=== PATIENT | female | born 1960 | race Caucasian/White ===

== ENCOUNTER 2019-01-22 16:39 | Emergency (ER) | payer MEDICARE ==
--- NOTE | 2019-01-22 18:22 | EDM.PDOC ---
ED HPI GENERAL MEDICAL PROBLEM - General Chief Complaint: Chest Pain Stated Complaint: CHEST HURTS WITH DEEP BREATH Time Seen by Provider: 01/22/19 18:22 Source of Information: Reports: Patient History Limitations: Reports: No Limitations - History of Present Illness INITIAL COMMENTS - FREE TEXT/NARRATIVE: pt arrived with rt sided pleuritic chest pain . This started yesterday. She has not had a fever. Onset: Other ( started yesterday) Duration: Hour(s): Location: Reports: Chest Associated Symptoms: Reports: Other (severe pain with dep breathing. ) Anterior Chest Pain Score (Numeric/FACES): 6 - Related Data Allergies Allergy/AdvReac Type Severity Reaction Status Date / Time adhesive Allergy Rash Verified 01/22/19 17:21 guaifenesin [From Robitussin] Allergy Abdominal Verified 01/22/19 17:21 Pain hydromorphone HCl Allergy Rash Verified 01/22/19 17:21 [From Dilaudid] phenobarbital Allergy Cannot Verified 01/22/19 17:21 Remember prochlorperazine edisylate Allergy Rash Verified 01/22/19 17:21 [From Compazine] prochlorperazine maleate Allergy Rash Verified 01/22/19 17:21 [From Compazine] acetaminophen [From Tylox] AdvReac Confusion Verified 01/22/19 17:21 oxycodone HCl [From Tylox] AdvReac Confusion Verified 01/22/19 17:21 Home Meds: Home Meds Pantoprazole [ProTONIX] 40 mg PO DAILY #30 05/31/14 [Rx] Cyclobenzaprine [Flexeril] 10 mg PO BID 02/15/15 [History] Folic Acid 1 mg PO DAILY 02/27/17 [History] Lacosamide [Vimpat] 100 mg PO BID 02/27/17 [History] Multivit-Min/FA/Lycopene/Lut [Centrum Silver Tablet] 1 each PO DAILY 02/27/17 [ History] Topiramate [Topamax] 75 mg PO DAILY 02/27/17 [History] hydrOXYzine HCl [hydrOXYzine] 25 mg PO QID PRN 02/27/17 [History] traZODone 150 mg PO BEDTIME 02/27/17 [History] levETIRAcetam [Keppra] 15 ml PO BID #900 ml 03/10/18 [Rx] Topiramate [Topamax] 125 mg PO BEDTIME 01/22/19 [History] Past Medical History Cardiovascular History: Reports: Angina, Blood Clots/VTE/DVT, CAD, High Cholesterol, Hypertension, [place] Respiratory History: Reports: COPD, Intubation, Previous, Other (See Below) Other Respiratory History: chronic atelectasis, ARDS Gastrointestinal History: Reports: Cholelithiasis, Chronic Constipation, Diverticulosis, GERD, Pancreatitis Genitourinary History: Reports: Other (See Below) Other Genitourinary History: NILES w/ bilateral salpingo- oophorectomy 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: Endometriosis Musculoskeletal History: Reports: Back Pain, Chronic, Fracture, Osteoporosis Other Musculoskeletal History: compression fracture Neurological History: Reports: Seizure Psychiatric History: Reports: Anxiety, Depression Endocrine/Metabolic History: Reports: Diabetes, Type II, Obesity/BMI 30+ Hematologic History: Reports: Anemia, Blood Transfusion(s) Dermatologic History: Reports: Other (See Below) Other Dermatologic History: granulomannulare - Infectious Disease History Infectious Disease History: Reports: Chicken Pox, Mumps - Past Surgical History HEENT Surgical History: Reports: Tonsillectomy GI Surgical History: Reports: Appendectomy, Bariatric Procedure, Cholecystectomy , Colonoscopy, EGD, Hernia Repair/Other, Other (See Below) Musculoskeletal Surgical History: Reports: Shoulder Surgery Social & Family History - Caffeine Use Caffeine Use: Reports: None - Living Situation & Occupation Living situation: Reports: Occupation: Disabled (Lives with Cameron, [facility] by [facility], had 3 children (1 ) and 4 step-children.) ED ROS GENERAL - Review of Systems Review Of Systems: See Below Constitutional: Reports: Weakness, Other (pain with deep breathing on the rt. ) HEENT: Reports: No Symptoms Respiratory: Reports: Pleuritic Chest Pain Cardiovascular: Reports: No Symptoms Endocrine: Reports: No Symptoms GI/Abdominal: Reports: No Symptoms : Reports: No Symptoms Musculoskeletal: Reports: No Symptoms ED EXAM, GENERAL - Physical Exam Exam: See Below Free Text/Narrative:: pt arrived with pleuritic pain in the rt chest. she does have some discomfort all of the time but it is very sharp when she coughes or takes a deep breath. Exam Limited By: No Limitations General Appearance: Alert, Anxious Ears: Normal TMs Nose: Normal Inspection Throat/Mouth: Normal Inspection Head: Atraumatic Neck: Normal Inspection Cardiovascular: Regular Rate, Rhythm, Other (pt does have a occasional ectopic. ) GI/Abdominal: Soft, Non-Tender (Female) Exam: Deferred Rectal (Female) Exam: Deferred Back Exam: Normal Inspection Extremities: Normal Inspection Neurological: Alert, Oriented, Normal Cognition Psychiatric: Normal Affect Course - Vital Signs Last Recorded V/S: Last Vital Signs Temp 37.0 C 01/22/19 18:54 Pulse 76 01/22/19 20:49 Resp 14 01/22/19 20:49 BP 125/65 01/22/19 20:49 Pulse Ox 97 01/22/19 20:49 - Orders/Labs/Meds Orders: Active Orders 24 hr Category Date Time Status EKG Documentation Completion [RC] ASDIRECTED Care 01/22/19 18:21 Active EKG 12 Lead [EK] Routine Ther 01/22/19 18:21 Ordered Labs: Laboratory Tests 01/22/19 01/22/19 01/22/19 Range/Units 18:30 18:35 18:35 WBC 5.9 (4.5-11.0) K/uL RBC 4.06 (3.30-5.50) M/uL Hgb 13.3 (12.0-15.0) g/dL Hct 40.0 (36.0-48.0) % MCV 99 H (80-98) fL MCH 33 H (27-31) pg MCHC 33 (32-36) % Plt Count 259 (150-400) K/uL Neut % (Auto) 50 (36-66) % Lymph % (Auto) 39 (24-44) % [place] % (Auto) 10 H (2-6) % Eos % (Auto) 2 (2-4) % Baso % (Auto) 0 (0-1) % D-Dimer, Quantitative < 100 (0.0-400.0) ng/mL Sodium (140-148) mmol/L Potassium (3.6-5.2) mmol/L Chloride (100-108) mmol/L Carbon Dioxide (21-32) mmol/L Anion Gap (5.0-14.0) mmol/L BUN (7-18) mg/dL Creatinine (0.6-1.0) mg/dL Est Cr Clr Drug Dosing mL/min Estimated GFR (MDRD) (>60) Glucose (74-106) mg/dL Calcium (8.5-10.1) mg/dL Total Bilirubin (0.2-1.0) mg/dL AST (15-37) U/L ALT (12-78) U/L Alkaline Phosphatase (46-116) U/L Troponin I < 0.017 (0.000-0.056) ng/mL C-Reactive Protein (0.0-0.3) mg/dL Total Protein (6.4-8.2) g/dL Albumin (3.4-5.0) g/dL Globulin (2.3-3.5) g/dL Albumin/Globulin Ratio (1.2-2.2) Urine Color (YELLOW) Urine Appearance (CLEAR) Urine pH (5.0-8.0) Ur Specific [place] (1.008-1.030) Urine Protein (NEGATIVE) mg/dL Urine Glucose (UA) (NEGATIVE) mg/dL Urine Ketones (NEGATIVE) mg/dL Urine Occult Blood (NEGATIVE) Urine Nitrite (NEGATIVE) Urine Bilirubin (NEGATIVE) Urine Urobilinogen (0.2-1.0) EU/dL Ur Leukocyte Esterase (NEGATIVE) Urine RBC (0-5) Urine WBC (0-5) Ur Epithelial Cells Amorphous Sediment Urine Bacteria Urine Mucus 01/22/19 01/22/19 01/22/19 Range/Units 18:35 18:35 19:42 WBC (4.5-11.0) K/uL RBC (3.30-5.50) M/uL Hgb (12.0-15.0) g/dL Hct (36.0-48.0) % MCV (80-98) fL MCH (27-31) pg MCHC (32-36) % Plt Count (150-400) K/uL Neut % (Auto) (36-66) % Lymph % (Auto) (24-44) % [place] % (Auto) (2-6) % Eos % (Auto) (2-4) % Baso % (Auto) (0-1) % D-Dimer, Quantitative (0.0-400.0) ng/mL Sodium 142 (140-148) mmol/L Potassium 4.1 (3.6-5.2) mmol/L Chloride 108 (100-108) mmol/L Carbon Dioxide 25 (21-32) mmol/L Anion Gap 9.2 (5.0-14.0) mmol/L BUN 9 (7-18) mg/dL Creatinine 0.7 (0.6-1.0) mg/dL Est Cr Clr Drug Dosing 71.58 mL/min Estimated GFR (MDRD) > 60 (>60) Glucose 90 (74-106) mg/dL Calcium 8.8 (8.5-10.1) mg/dL Total Bilirubin 0.2 (0.2-1.0) mg/dL AST 16 (15-37) U/L ALT 14 D (12-78) U/L Alkaline Phosphatase 94 (46-116) U/L Troponin I (0.000-0.056) ng/mL C-Reactive Protein 1.13 H (0.0-0.3) mg/dL Total Protein 7.1 (6.4-8.2) g/dL Albumin 3.3 L (3.4-5.0) g/dL Globulin 3.8 H (2.3-3.5) g/dL Albumin/Globulin Ratio 0.9 L (1.2-2.2) Urine Color Yellow (YELLOW) Urine Appearance Clear (CLEAR) Urine pH 6.5 (5.0-8.0) Ur Specific [place] 1.025 (1.008-1.030) Urine Protein Negative (NEGATIVE) mg/dL Urine Glucose (UA) Negative (NEGATIVE) mg/dL Urine Ketones Negative (NEGATIVE) mg/dL Urine Occult Blood Negative (NEGATIVE) Urine Nitrite Negative (NEGATIVE) Urine Bilirubin Negative (NEGATIVE) Urine Urobilinogen 0.2 (0.2-1.0) EU/dL Ur Leukocyte Esterase Trace H (NEGATIVE) Urine RBC 0-5 (0-5) Urine WBC 0-5 (0-5) Ur Epithelial Cells Few Amorphous Sediment Not seen Urine Bacteria Few Urine Mucus Moderate Meds: Medications Discontinued Medications Generic Name Dose Route Start Last Admin Trade Name Freq PRN Reason Stop Dose Admin Hydrocodone Bitart/Acetaminophen 1 tab 01/22/19 20:14 01/22/19 20:48 [place] 325-5 Mg PO 01/22/19 20:15 1 tab ONETIME ONE Administration Ketorolac Tromethamine 60 mg 01/22/19 18:58 01/22/19 19:05 Toradol IM 01/22/19 18:59 60 mg ONETIME ONE Administration - Re-Assessments/Exams Free Text/Narrative Re-Assessment/Exam: 01/22/19 20:19 pt had a normal trop. Her ekg did showed some possible evidence of a old infacrt inferior. Her chest xray was clear. She is still uncomfortable. She was given torodol 60 mg im. She had clear urine. Her wbc was normal. 01/22/19 20:56 pthad a normal ddimer. She wasgiven some norco. Departure - Departure Time of Disposition: 20:57 Disposition: Home, Self-Care 01 Condition: Fair Clinical Impression: Pleurisy, Seizure disorder Referrals: Darleen Moody ENVIRONMENTAL HEALTH SPECIALIST [Primary Care Provider] - Forms: ED Department Discharge Care Plan Goals: encourage deep breathing, naprosyn 500 mg bid for 4 days, norco 5/325 q6h prn for pain, may use tylenol inbetween for pain. - My Orders Last 24 Hours: My Active Orders 01/22/19 18:21 EKG Documentation Completion [RC] ASDIRECTED EKG 12 Lead [EK] Routine - Assessment/Plan Last 24 Hours: My Active Orders 01/22/19 18:21 EKG Documentation Completion [RC] ASDIRECTED EKG 12 Lead [EK] Routine
[2019-01-22] MEDS ORDERED: Ketorolac 60 MG/2 ML SDV IM ONE (18:58)
--- NOTE | 2019-01-22 19:43 | CRLCR ---
INDICATION: Right-sided chest pain TECHNIQUE: Chest 2 views. COMPARISON: 06/26/2015 FINDINGS: Cardiovascular and mediastinum: Heart size and vasculature are normal in caliber and appearance. Mediastinum is within normal limits. Right-sided central line tip in the SVC. Lungs and pleural spaces: Lungs are clear. No sign of infiltrate or mass. No sign of pleural effusion. No pneumothorax. Bones and soft tissues: No significant findings. IMPRESSION: Unremarkable chest. Dictated by Vini Shah MD @ 01/22/2019 7:40:49 PM Dictated by: Vini Shah MD @ 01/22/2019 19:40:53 (Electronically Signed)
[2019-01-22] MEDS ORDERED: Acetaminophen/HYDROcodone 325-5 MG Tab PO ONE (20:14)
[2019-01-22 20:50] VITALS: BP 125/65; PULSE 76
== END 2019-01-22 21:24 | disposition home or self-care (01) ==
LOC: JP.ED 16:39
DX: G40.909 Epilepsy, unspecified, not intractable, without status epilepticus (principal); R09.1 Pleurisy; I10 Essential (primary) hypertension; I25.2 Old myocardial infarction; J44.9 Chronic obstructive pulmonary disease, unspecified; K21.9 Gastro-esophageal reflux disease without esophagitis; F41.9 Anxiety disorder, unspecified; F32.9 Major depressive disorder, single episode, unspecified; E11.9 Type 2 diabetes mellitus without complications; E78.00 Pure hypercholesterolemia, unspecified; Z91.048 Other nonmedicinal substance allergy status; Z88.8 Allergy status to other drugs, medicaments and biological substances; Z88.6 Allergy status to analgesic agent; Z79.899 Other long term (current) drug therapy; Z86.718 Personal history of other venous thrombosis and embolism
CPT/HCPCS: 36415; 71046; 80053; 81001; 84484; 85025; 85379; 86140; 93005; 96372; 99284; A9270; J1885; 93010; 99283

== ENCOUNTER 2019-09-14 11:20 | Emergency (ER) | payer MEDICARE ==
[2019-09-14 11:33] VITALS: BP 147/93; PULSE 102
--- NOTE | 2019-09-14 12:06 | EDM.PDOC ---
ED HPI GENERAL MEDICAL PROBLEM - General Chief Complaint: Back Pain or Injury Stated Complaint: FALL, DISORIENTED Time Seen by Provider: 09/14/19 11:54 Source of Information: Reports: Patient, RN Notes Reviewed History Limitations: Reports: No Limitations - History of Present Illness INITIAL COMMENTS - FREE TEXT/NARRATIVE: 58-year-old female presents emergency department a complaint of neck pain and back pain she fell landed on the ground couple days ago she did hit her head she has had some symptoms with headache a little bit of confusion problems with concentration after her head injury but the main focus is pain at the lower part of her neck as well as low back pain. She does states she has significant history of osteoporosis no loss of bowel or bladder is able to ambulate without difficulty head neck back pelvis Pain Score (Numeric/FACES): 8 - Related Data Allergies Allergy/AdvReac Type Severity Reaction Status Date / Time adhesive Allergy Rash Verified 09/14/19 11:43 guaifenesin [From Robitussin] Allergy Abdominal Verified 09/14/19 11:43 Pain hydromorphone HCl Allergy Rash Verified 09/14/19 11:43 [From Dilaudid] phenobarbital Allergy Cannot Verified 09/14/19 11:43 Remember prochlorperazine edisylate Allergy Rash Verified 09/14/19 11:43 [From Compazine] prochlorperazine maleate Allergy Rash Verified 09/14/19 11:43 [From Compazine] acetaminophen [From Tylox] AdvReac Confusion Verified 09/14/19 11:43 oxycodone HCl [From Tylox] AdvReac Confusion Verified 09/14/19 11:43 Home Meds: Home Meds Pantoprazole [ProTONIX] 40 mg PO DAILY #30 05/31/14 [Rx] Cyclobenzaprine [Flexeril] 10 mg PO BID 02/15/15 [History] Folic Acid 1 mg PO DAILY 02/27/17 [History] Lacosamide [Vimpat] 100 mg PO BID 02/27/17 [History] Multivit-Min/FA/Lycopen/Lutein [Centrum Silver Tablet] 1 each PO DAILY 02/27/17 [History] Topiramate [Topamax] 75 mg PO DAILY 02/27/17 [History] hydrOXYzine HCL [hydrOXYzine] 25 mg PO QID PRN 02/27/17 [History] traZODone 150 mg PO BEDTIME 02/27/17 [History] levETIRAcetam [Keppra] 15 ml PO BID #900 ml 03/10/18 [Rx] Topiramate [Topamax] 125 mg PO BEDTIME 01/22/19 [History] Alendronate Sodium [Fosamax] 70 mg PO ASDIRECTED 09/14/19 [History] FLUoxetine HCl [Fluoxetine HCl] 40 mg PO DAILY 09/14/19 [History] Simvastatin 20 mg PO BEDTIME 09/14/19 [History] Past Medical History Cardiovascular History: Reports: Angina, Blood Clots/VTE/DVT, CAD, High Cholesterol, Hypertension, [place] Respiratory History: Reports: COPD, Intubation, Previous, Other (See Below) Other Respiratory History: chronic atelectasis, ARDS Gastrointestinal History: Reports: Cholelithiasis, Chronic Constipation, Diverticulosis, GERD, Pancreatitis Genitourinary History: Reports: Other (See Below) Other Genitourinary History: NILES w/ bilateral salpingo- oophorectomy 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: Endometriosis Musculoskeletal History: Reports: Back Pain, Chronic, Fracture, Osteoporosis Other Musculoskeletal History: compression fracture Neurological History: Reports: Seizure Psychiatric History: Reports: Anxiety, Depression Endocrine/Metabolic History: Reports: Diabetes, Type II, Obesity/BMI 30+ Hematologic History: Reports: Anemia, Blood Transfusion(s) Dermatologic History: Reports: Other (See Below) Other Dermatologic History: granulomannulare - Infectious Disease History Infectious Disease History: Reports: Chicken Pox, Mumps - Past Surgical History HEENT Surgical History: Reports: Tonsillectomy GI Surgical History: Reports: Appendectomy, Bariatric Procedure, Cholecystectomy , Colonoscopy, EGD, Hernia Repair/Other, Other (See Below) Musculoskeletal Surgical History: Reports: Shoulder Surgery Social & Family History - Tobacco Use Smoking Status *Q: Current Every Day Smoker Years of Tobacco use: 40 Packs/Tins Daily: 0.5 - Caffeine Use Caffeine Use: Reports: None - Recreational Drug Use Recreational Drug Use: No - Living Situation & Occupation Living situation: Reports: Occupation: Disabled (Lives with Cameron, [facility], had 3 children (1 ) and 4 step-children.) ED ROS GENERAL - Review of Systems Review Of Systems: See Below Constitutional: Denies: Fever HEENT: Reports: No Symptoms Respiratory: Reports: No Symptoms Cardiovascular: Reports: No Symptoms GI/Abdominal: Reports: No Symptoms Musculoskeletal: Reports: Neck Pain, Back Pain Neurological: Reports: Confusion ED EXAM,LOWER BACK PAIN/INJURY - Physical Exam Exam: See Below Exam Limited By: No Limitations General Appearance: Alert, WD/WN, No Apparent Distress Neck: Normal Inspection, Tender Lateral, Tender Midline. No: Lymphadenopathy (R ), Lymphadenopathy (L) Respiratory/Chest: No Respiratory Distress Back Exam: Paraspinal Tenderness, Vertebral Tenderness. No: CVA Tenderness (R) , CVA Tenderness (L), Decreased Range of Motion Course - Vital Signs Last Recorded V/S: Last Vital Signs Temp 96.8 F L 09/14/19 11:43 Pulse 102 H 09/14/19 11:43 Resp 16 09/14/19 11:43 BP 147/93 H 09/14/19 11:43 Pulse Ox 95 09/14/19 11:43 - Orders/Labs/Meds Orders: Active Orders 24 hr Category Date Time Status Lumbar Spine 2 or 3V [CR] Stat Exams 09/14/19 12:03 Taken Meds: Medications Discontinued Medications Generic Name Dose Route Start Last Admin Trade Name Freq PRN Reason Stop Dose Admin Ketorolac Tromethamine 60 mg 09/14/19 13:36 09/14/19 13:42 Toradol IM 09/14/19 13:37 60 mg ONETIME ONE Administration Departure - Departure Time of Disposition: 14:12 Disposition: Home, Self-Care 01 Condition: Poor Clinical Impression: Fall Qualifiers: Encounter type: initial encounter Qualified Code(s): W19.XXXA - Unspecified fall, initial encounter Contusion, back Qualifiers: Encounter type: initial encounter Laterality: unspecified laterality Qualified Code(s): S20.229A - Contusion of unspecified back wall of thorax, initial encounter Neck contusion Qualifiers: Encounter type: initial encounter Qualified Code(s): S10.93XA - Contusion of unspecified part of neck, initial encounter - Discharge Information Instructions: Neck Contusion, [id number], Contusion, [id number] Referrals: PCP,None [Primary Care Provider] - Forms: ED Department Discharge Additional Instructions: Use ibuprofen for baseline pain control, use hydrocodone for breakthrough pain please contact your primary care tomorrow for further evaluation Sepsis Event Note - Evaluation Sepsis Screening Result: No Definite Risk - Focused Exam Vital Signs: Vital Signs Temp Pulse Resp BP Pulse Ox 09/14/19 11:43 96.8 F L 102 H 16 147/93 H 95 09/14/19 11:32 96.8 F L 102 H 16 147/93 H 95 Date Exam was Performed: 09/14/19 Time Exam was Performed: 14:10 - My Orders Last 24 Hours: My Active Orders 09/14/19 12:03 Lumbar Spine 2 or 3V [CR] Stat - Assessment/Plan Last 24 Hours: My Active Orders 09/14/19 12:03 Lumbar Spine 2 or 3V [CR] Stat Plan: Assessment Acuity = acute Site and laterality = concussion-like syndrome with neck and back contusion Etiology = secondary to fall Manifestations = confusion, headache Location of injury = Home Lab values = plain film of the lumbar spine showed no acute process, CT scan of the neck shows also no acute process Plan She received no relief from the Toradol injection provided prescription for written for hydrocodone 5/325 1 tab p.o. 3 times daily PRN total #4 she will contact her primary care tomorrow for further evaluation which may include physical therapy or concussion therapy This note was dictated using [employer] voice recognition software please call with any questions on syntax or grammar.
--- NOTE | 2019-09-14 13:20 | CRLCT ---
INDICATION: Fell on pain. Cervical spine CT. Coronal sagittal reformatted images obtained. Findings: There is normal height and alignment of the cervical vertebral bodies. Prevertebral soft tissues within normal limits. No acute fractures seen. IMPRESSION: No acute fracture or traumatic malalignment. Please note that all CT scans at this facility use dose modulation, iterative reconstruction, and/or weight-based dosing when appropriate to reduce radiation dose to as low as reasonably achievable. Dictated by Florence Orozco MD @ Sep 14 2019 1:13PM Signed by Dr. Florence Orozco @ Sep 14 2019 1:17PM
[2019-09-14] MEDS ORDERED: Ketorolac 60 MG/2 ML SDV IM ONE (13:36)
--- NOTE | 2019-09-15 11:16 | CR ---
Lumbar Spine 2 or 3V CLINICAL HISTORY: Fall, back pain FINDINGS: The vertebral body heights are maintained. There is a transitional lumbosacral segment. There is mild diffuse spondylosis. There is some osteoarthritis in the lower lumbar facets. Alignment is maintained. Impression: Diffuse degenerative disc disease Transitional lumbosacral segment Low lumbar facet osteoarthropathy
== END 2019-09-14 14:33 | disposition home or self-care (01) ==
LOC: JP.ED 11:20
DX: S10.93XA Contusion of unspecified part of neck, initial encounter (principal); S20.229A Contusion of unspecified back wall of thorax, initial encounter; J44.9 Chronic obstructive pulmonary disease, unspecified; E78.00 Pure hypercholesterolemia, unspecified; I25.10 Atherosclerotic heart disease of native coronary artery without angina pectoris; I10 Essential (primary) hypertension; I25.2 Old myocardial infarction; K21.9 Gastro-esophageal reflux disease without esophagitis; F41.9 Anxiety disorder, unspecified; F32.9 Major depressive disorder, single episode, unspecified; E11.9 Type 2 diabetes mellitus without complications; D64.9 Anemia, unspecified; E66.9 Obesity, unspecified; F17.210 Nicotine dependence, cigarettes, uncomplicated; Z68.36 Body mass index [BMI] 36.0-36.9, adult; Z91.048 Other nonmedicinal substance allergy status; Z88.8 Allergy status to other drugs, medicaments and biological substances; Z88.5 Allergy status to narcotic agent; Z88.6 Allergy status to analgesic agent; Z79.899 Other long term (current) drug therapy; W19.XXXA Unspecified fall, initial encounter
CPT/HCPCS: 72100; 72125; 96372; 99283; 99284; J1885

== ENCOUNTER 2019-10-30 19:34 | Emergency (ER) | payer MEDICARE ==
[2019-10-30] MEDS ORDERED: Sodium Chloride 0.9% 10 ML Syringe FLUSH PRN (19:52)
[2019-10-30] MEDS ORDERED: Nitroglycerin 0.4 MG Tab.SL SL PRN (19:52)
[2019-10-30] MEDS ORDERED: Aspirin 81 MG Tab.Chew PO ONE (19:52)
--- NOTE | 2019-10-30 19:55 | EDM.PDOC ---
ED HPI GENERAL MEDICAL PROBLEM - General Chief Complaint: Chest Pain Stated Complaint: JAW & CHEST PAIN Time Seen by Provider: 10/30/19 19:45 Source of Information: Reports: Patient, Old Records, RN History Limitations: Reports: No Limitations - History of Present Illness INITIAL COMMENTS - FREE TEXT/NARRATIVE: 58 yo female here with several minutes of chest and jaw pain. Jaw pain now gone. Sx's on at rest. Is a smoker. Says she had heart cath's 6+ yrs ago that were OK(done in [place]). Pain radiates to her shoulder(L). No SOB, nausea or diaphoresis. Chest feels heavy. Onset: Today, Sudden Onset Date: 10/30/19 Duration: Minutes: Location: Reports: Chest, Upper Extremity, Left Quality: Reports: Pressure Severity: Moderate Improves with: Reports: None Worsens with: Reports: Other (unknown) Context: Reports: Other (See HPI) Associated Symptoms: Reports: Chest Pain. Denies: Diaphoresis, Fever/Chills, Nausea/Vomiting, Shortness of Breath, Syncope Treatments FRONT DESK SPECIALIST: Reports: Other (see below) (none) chest pain Pain Score (Numeric/FACES): 8 - Related Data Allergies Allergy/AdvReac Type Severity Reaction Status Date / Time adhesive Allergy Rash Verified 10/30/19 19:51 guaifenesin [From Robitussin] Allergy Abdominal Verified 10/30/19 19:51 Pain hydromorphone HCl Allergy Rash Verified 10/30/19 19:51 [From Dilaudid] phenobarbital Allergy Cannot Verified 10/30/19 19:51 Remember prochlorperazine edisylate Allergy Rash Verified 10/30/19 19:51 [From Compazine] prochlorperazine maleate Allergy Rash Verified 10/30/19 19:51 [From Compazine] acetaminophen [From Tylox] AdvReac Confusion Verified 10/30/19 19:51 oxycodone HCl [From Tylox] AdvReac Confusion Verified 10/30/19 19:51 Home Meds: Home Meds Pantoprazole [ProTONIX] 40 mg PO DAILY #30 05/31/14 [Rx] Cyclobenzaprine [Flexeril] 10 mg PO BID 02/15/15 [History] Folic Acid 1 mg PO DAILY 02/27/17 [History] Lacosamide [Vimpat] 100 mg PO BID 02/27/17 [History] Multivit-Min/FA/Lycopen/Lutein [Centrum Silver Tablet] 1 each PO DAILY 02/27/17 [History] Topiramate [Topamax] 75 mg PO DAILY 02/27/17 [History] hydrOXYzine HCL [hydrOXYzine] 25 mg PO BID PRN 02/27/17 [History] traZODone 150 mg PO BEDTIME 02/27/17 [History] levETIRAcetam [Keppra] 15 ml PO BID #900 ml 03/10/18 [Rx] Topiramate [Topamax] 125 mg PO BEDTIME 01/22/19 [History] Alendronate Sodium [Fosamax] 70 mg PO ASDIRECTED 09/14/19 [History] FLUoxetine HCl [Fluoxetine HCl] 40 mg PO DAILY 09/14/19 [History] Simvastatin 20 mg PO BEDTIME 09/14/19 [History] Past Medical History Cardiovascular History: Reports: Angina, Blood Clots/VTE/DVT, CAD, High Cholesterol, Hypertension, PA Respiratory History: Reports: COPD, Intubation, Previous, Other (See Below) Other Respiratory History: chronic atelectasis, ARDS Gastrointestinal History: Reports: Cholelithiasis, Chronic Constipation, Diverticulosis, GERD, Pancreatitis Genitourinary History: Reports: Other (See Below) Other Genitourinary History: NILES w/ bilateral salpingo- oophorectomy DIRECTOR OF OUTREACH History: Reports: Endometriosis Musculoskeletal History: Reports: Back Pain, Chronic, Fracture, Osteoporosis Other Musculoskeletal History: compression fracture Neurological History: Reports: Seizure Psychiatric History: Reports: Anxiety, Depression Endocrine/Metabolic History: Reports: Diabetes, Type II, Obesity/BMI 30+ Hematologic History: Reports: Anemia, Blood Transfusion(s) Dermatologic History: Reports: Other (See Below) Other Dermatologic History: granulomannulare - Infectious Disease History Infectious Disease History: Reports: Chicken Pox, Mumps - Past Surgical History HEENT Surgical History: Reports: Tonsillectomy GI Surgical History: Reports: Appendectomy, Bariatric Procedure, Cholecystectomy, Colonoscopy, EGD, Hernia Repair/Other, Other (See Below) Musculoskeletal Surgical History: Reports: Shoulder Surgery Social & Family History - Caffeine Use Caffeine Use: Reports: None - Living Situation & Occupation Living situation: Reports: Occupation: Disabled (Lives with Cameron, [facility], had 3 children (1 ) and 4 step-children.) ED ROS GENERAL - Review of Systems Review Of Systems: See Below Constitutional: Reports: No Symptoms HEENT: Reports: No Symptoms Respiratory: Reports: No Symptoms. Denies: Shortness of Breath, Pleuritic Chest Pain Cardiovascular: Reports: Chest Pain. Denies: Dyspnea on Exertion, Edema, Palpitations, Syncope Endocrine: Reports: No Symptoms GI/Abdominal: Reports: No Symptoms : Reports: No Symptoms Musculoskeletal: Reports: No Symptoms Skin: Reports: No Symptoms Neurological: Reports: No Symptoms ED EXAM, GENERAL - Physical Exam Exam: See Below Exam Limited By: No Limitations General Appearance: Alert, WD/WN, No Apparent Distress, Obese Eye Exam: Right Eye: A-V [place], Bilateral Eye: EOMI, PERRL Ears: Normal External Exam, Normal Canal, Hearing Grossly Normal, Normal TMs Ear Exam: Bilateral Ear: Auricle Normal, Canal Normal, TM normal Nose: Normal Inspection, No Blood Throat/Mouth: Normal Inspection, Normal Lips, Normal Oropharynx, Normal Voice, No Airway Compromise Head: Atraumatic, Normocephalic Neck: Normal Inspection Respiratory/Chest: No Respiratory Distress, Lungs Clear, Normal Breath Sounds, No Accessory Muscle Use, Chest Non-Tender Cardiovascular: Regular Rate, Rhythm, No Edema GI/Abdominal: Normal Bowel Sounds, Soft, Non-Tender, No Distention Back Exam: Normal Inspection. No: CVA Tenderness (R), CVA Tenderness (L) Extremities: Normal Inspection, Normal Range of Motion, Non-Tender, No Pedal Edema Neurological: Alert, Oriented, CN II-XII Intact, Normal Cognition, No Motor/Sensory Deficits Psychiatric: Normal Affect, Normal Mood Skin Exam: Warm, Dry, Normal Color, No Rash EKG INTERPRETATION EKG Date: 10/30/19 Time: 19:40 Rhythm: NSR Rate (Beats/Min): 85 [place]: Normal P-Wave: Present QRS: Normal ST-T: Normal QT: Normal Comparison: No Change Course - Vital Signs Last Recorded V/S: Last Vital Signs Temp 36.5 C 10/30/19 20:03 Pulse 76 10/30/19 20:03 Resp 14 10/30/19 20:03 BP 137/72 10/30/19 20:20 Pulse Ox 95 10/30/19 20:03 - Orders/Labs/Meds Orders: Active Orders 24 hr Category Date Time Status Cardiac Monitoring [RC] .As Directed Care 10/30/19 19:51 Active EKG Documentation Completion [RC] ASDIRECTED Care 10/30/19 19:51 Active EKG Documentation Completion [RC] ASDIRECTED Care 10/30/19 21:11 Active Chest 2V [CR] Stat Exams 10/30/19 20:27 Taken Acetaminophen/HYDROcodone [[place] 325-5 MG] Med 10/30/19 22:33 Once 1 tab PO ONETIME ONE Nitroglycerin [Nitrostat] Med 10/30/19 19:52 Active 0.4 mg SL Q5M PRN Sodium Chloride 0.9% [Saline Flush] Med 10/30/19 19:52 Active 10 ml FLUSH ASDIRECTED PRN Saline Lock Insert [OM.PC] Routine Oth 10/30/19 19:52 Ordered EKG 12 Lead [EK] Routine Ther 10/30/19 19:51 Ordered EKG 12 Lead [EK] Routine Ther 10/30/19 21:11 Ordered Medication Orders Nitroglycerin (Nitrostat) 0.4 mg SL Q5M PRN PRN Reason: Chest Pain Last Admin: 10/30/19 20:20 Dose: 0.4 mg Documented by: EASTON Sodium Chloride (Saline Flush) 10 ml FLUSH ASDIRECTED PRN PRN Reason: Keep Vein Open Last Admin: 10/30/19 20:19 Dose: 10 ml Documented by: EASTON Labs: Laboratory Tests 10/30/19 10/30/19 10/30/19 Range/Units 20:06 20:06 20:29 WBC 4.5 (4.5-11.0) K/uL RBC 4.24 (3.30-5.50) M/uL Hgb 13.0 (12.0-15.0) g/dL Hct 40.7 (36.0-48.0) % MCV 96 (80-98) fL MCH 31 (27-31) pg MCHC 32 (32-36) % Plt Count 247 (150-400) K/uL D-Dimer, Quantitative < 100 (0.0-400.0) ng/mL Sodium 145 (140-148) mmol/L Potassium 3.7 (3.6-5.2) mmol/L Chloride 110 H (100-108) mmol/L Carbon Dioxide 25 (21-32) mmol/L Anion Gap 13.7 (5.0-14.0) mmol/L BUN 11 (7-18) mg/dL Creatinine 1.0 (0.6-1.0) mg/dL Est Cr Clr Drug Dosing 50.11 mL/min Estimated GFR (MDRD) 57 L (>60) Glucose 100 (74-106) mg/dL Calcium 8.5 (8.5-10.1) mg/dL Troponin I < 0.017 (0.000-0.056) ng/mL 10/30/19 Range/Units 22:02 WBC (4.5-11.0) K/uL RBC (3.30-5.50) M/uL Hgb (12.0-15.0) g/dL Hct (36.0-48.0) % MCV (80-98) fL MCH (27-31) pg MCHC (32-36) % Plt Count (150-400) K/uL D-Dimer, Quantitative (0.0-400.0) ng/mL Sodium (140-148) mmol/L Potassium (3.6-5.2) mmol/L Chloride (100-108) mmol/L Carbon Dioxide (21-32) mmol/L Anion Gap (5.0-14.0) mmol/L BUN (7-18) mg/dL Creatinine (0.6-1.0) mg/dL Est Cr Clr Drug Dosing mL/min Estimated GFR (MDRD) (>60) Glucose (74-106) mg/dL Calcium (8.5-10.1) mg/dL Troponin I < 0.017 (0.000-0.056) ng/mL Meds: Medications Generic Name Dose Route Start Last Admin Trade Name Freq PRN Reason Stop Dose Admin Nitroglycerin 0.4 mg 10/30/19 19:52 10/30/19 20:20 Nitrostat SL 0.4 mg Q5M PRN Administration Chest Pain Sodium Chloride 10 ml 10/30/19 19:52 10/30/19 20:19 Saline Flush FLUSH 10 ml ASDIRECTED PRN Administration Keep Vein Open Discontinued Medications Generic Name Dose Route Start Last Admin Trade Name Freq PRN Reason Stop Dose Admin Aspirin 324 mg 10/30/19 19:52 10/30/19 20:20 Aspirin PO 10/30/19 19:53 324 mg ONETIME ONE Administration Al Hydroxide/Mg Hydroxide 15 0 ml 10/30/19 21:14 10/30/19 21:34 ml/ Lidocaine HCl 15 ml PO 10/30/19 21:15 30 ml ONETIME ONE Administration Ketorolac Tromethamine 15 mg 10/30/19 20:46 10/30/19 21:33 Toradol IVPUSH 10/30/19 20:47 15 mg ONETIME ONE Administration - Radiology Interpretation Free Text/Narrative:: CXR-neg - Re-Assessments/Exams Free Text/Narrative Re-Assessment/Exam: 10/30/19 21:13 No change with NTG SL. Free Text/Narrative Re-Assessment/Exam: 10/30/19 21:59 No change with GI cocktail po Departure - Departure Time of Disposition: 22:45 Disposition: Home, Self-Care 01 Condition: Fair Clinical Impression: Nonspecific chest pain Instructions: Nonspecific Chest Pain, Adult, [id number] Referrals: PCP,None [Primary Care Provider] - Forms: ED Department Discharge Additional Instructions: No smoking. Take a baby aspirin with food daily. Use the [place] for pain relief as needed. See your doctor for recheck next wee, return if worse. Sepsis Event Note (ED) - Focused Exam Vital Signs: Vital Signs Temp Pulse Resp BP BP Pulse Ox 10/30/19 20:20 137/72 10/30/19 20:03 36.5 C 76 14 140/75 95 10/30/19 19:59 36.5 C 76 14 140/75 95 - My Orders Last 24 Hours: My Active Orders 10/30/19 19:51 Cardiac Monitoring [RC] .As Directed EKG Documentation Completion [RC] ASDIRECTED EKG 12 Lead [EK] Routine 10/30/19 19:52 Nitroglycerin [Nitrostat] 0.4 mg SL Q5M PRN Sodium Chloride 0.9% [Saline Flush] 10 ml FLUSH ASDIRECTED PRN Saline Lock Insert [OM.PC] Routine 10/30/19 20:27 Chest 2V [CR] Stat 10/30/19 21:11 EKG Documentation Completion [RC] ASDIRECTED EKG 12 Lead [EK] Routine 10/30/19 22:33 Acetaminophen/HYDROcodone [[place] 325-5 MG] 1 tab PO ONETIME ONE - Assessment/Plan Last 24 Hours: My Active Orders 10/30/19 19:51 Cardiac Monitoring [RC] .As Directed EKG Documentation Completion [RC] ASDIRECTED EKG 12 Lead [EK] Routine 10/30/19 19:52 Nitroglycerin [Nitrostat] 0.4 mg SL Q5M PRN Sodium Chloride 0.9% [Saline Flush] 10 ml FLUSH ASDIRECTED PRN Saline Lock Insert [OM.PC] Routine 10/30/19 20:27 Chest 2V [CR] Stat 10/30/19 21:11 EKG Documentation Completion [RC] ASDIRECTED EKG 12 Lead [EK] Routine 10/30/19 22:33 Acetaminophen/HYDROcodone [[place] 325-5 MG] 1 tab PO ONETIME ONE
[2019-10-30 20:02] VITALS: PULSE 76
[2019-10-30 20:20] VITALS: BP 137/72
[2019-10-30] MEDS ORDERED: Ketorolac 30 MG/ML SDV IVPUSH ONE (20:46)
[2019-10-30] MEDS ORDERED: Alum Hydrox/Mag Hydrox/Simeth 15 ML, Lidocaine 2% 15 ML PO ONE ×2 (21:14)
[2019-10-30] MEDS ORDERED: Acetaminophen/HYDROcodone 325-5 MG Tab PO ONE (22:33)
--- NOTE | 2019-10-31 09:55 | CR ---
CHEST: 2 view CLINICAL HISTORY:Right lower quadrant pain COMPARISON:2019 FINDINGS: Patient is a right jugular [id number] catheter. Tip is in the superior vena cava. The heart size, pulmonary vascularity and hilar structures are normal. No infiltrate effusion or pneumothorax is seen. There is some lingular scarring. IMPRESSION: No acute cardiopulmonary process.
== END 2019-10-30 23:05 | disposition home or self-care (01) ==
LOC: JP.ED 19:34
DX: R07.9 Chest pain, unspecified (principal); I25.10 Atherosclerotic heart disease of native coronary artery without angina pectoris; E78.00 Pure hypercholesterolemia, unspecified; J44.9 Chronic obstructive pulmonary disease, unspecified; K21.9 Gastro-esophageal reflux disease without esophagitis; R56.9 Unspecified convulsions; F41.9 Anxiety disorder, unspecified; F32.9 Major depressive disorder, single episode, unspecified; E11.9 Type 2 diabetes mellitus without complications; I10 Essential (primary) hypertension; I25.2 Old myocardial infarction; E66.9 Obesity, unspecified; Z68.37 Body mass index [BMI] 37.0-37.9, adult; Z91.048 Other nonmedicinal substance allergy status; Z88.5 Allergy status to narcotic agent; Z88.8 Allergy status to other drugs, medicaments and biological substances; Z88.6 Allergy status to analgesic agent
CPT/HCPCS: 36415; 71046; 80048; 84484; 85027; 85379; 93005; 96374; 99285; A9270; J1642; J1885; 93010

== ENCOUNTER 2021-06-25 23:05 | Emergency (ER) | payer MEDICARE ==
[2021-06-25] MEDS ORDERED: fentaNYL 100 MCG/2 ML SDV IVPUSH ONE (23:36)
[2021-06-25 23:40] VITALS: BP 141/74; PULSE 94
[2021-06-26] MEDS ORDERED: Ketorolac 30 MG/ML SDV IVPUSH ONE (00:38)
== END 2021-06-26 01:58 | disposition home or self-care (01) ==
LOC: JP.ED 23:05
DX: S20.224A Contusion of middle back wall of thorax, initial encounter (principal); I25.119 Atherosclerotic heart disease of native coronary artery with unspecified angina pectoris; E78.00 Pure hypercholesterolemia, unspecified; I10 Essential (primary) hypertension; I25.2 Old myocardial infarction; J44.9 Chronic obstructive pulmonary disease, unspecified; E11.9 Type 2 diabetes mellitus without complications; E66.9 Obesity, unspecified; Z91.048 Other nonmedicinal substance allergy status; Z88.8 Allergy status to other drugs, medicaments and biological substances; Z79.899 Other long term (current) drug therapy; Z68.36 Body mass index [BMI] 36.0-36.9, adult; Z72.0 Tobacco use; W18.30XA Fall on same level, unspecified, initial encounter; Y92.009 Unspecified place in unspecified non-institutional (private) residence as the place of occurrence of the external cause
CPT/HCPCS: 72128; 96374; 96375; 99282; 99283; J1885; J3010